=== PATIENT | female | born 1985 | race Caucasian/White ===

== ENCOUNTER 2016-07-17 02:36 | Emergency (ER) | payer SELFPAY ==
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
== END 2016-07-17 02:50 | disposition left against medical advice (07) ==
LOC: ER 02:36
DX: M54.2 Cervicalgia (principal); R11.0 Nausea; I10 Essential (primary) hypertension; F17.200 Nicotine dependence, unspecified, uncomplicated
CPT/HCPCS: Z7502